=== PATIENT | male | born 1985 | race Caucasian/White ===

== ENCOUNTER 2022-07-18 12:42 | Emergency (ER) | payer OTHER, SELFPAY ==
--- NOTE | ~2022-07-18 | CT_ITS ---
EXAMINATION: CT abdomen pelvis wo con DATE: 07/18/2022 14:34 INDICATION: Left-sided flank pain. Nausea and vomiting TECHNIQUE: Computed tomography (CT) of the abdomen and pelvis was performed without intravenous contr ast. The dose-length product was 285.33 mGy-cm. Automated exposure control and iterative reconstructi on technique were employed. COMPARISON: None. FINDINGS: Lung bases are unremarkable. Heart size is normal. No significant pleural or pericardial ef fusion. No significant vascular abnormality. No lymphadenopathy. The liver, spleen, pancreas, adrenal glands and right kidney are unremarkable. There is a 6 x 5 mm pr oximal left ureteral stone with moderate left hydronephrosis. There is perinephric edema. Gallbladder is present. No lymphadenopathy. Nonobstructive bowel pattern. Colonic diverticulosis without evidenc e for diverticulitis. No acute osseous abnormality. IMPRESSION: 1. 6 mm proximal left ureteral stone with moderate hydroureteronephrosis. Reviewed, dictated and finalized at location B.
--- NOTE | ~2022-07-18 | XR_ITS ---
EXAMINATION: XR abdomen/kub 1V DATE: 07/18/2022 16:18 INDICATION: Left flank pain. Nausea and vomiting. TECHNIQUE: A supine view of the abdomen on 2 radiographs was obtained. COMPARISON: CT abdomen and pelvis 07/18/2022 FINDINGS: There are no dilated loops of bowel. There are 1 mm and 2 mm stones in left kidney. There a re 7 mm and 2 mm stones in proximal left ureter. There are phleboliths in left pelvis. IMPRESSION: 1. Stones in left kidney and proximal left ureter. Reviewed, dictated and finalized at location A.
[2022-07-18 12:57] VITALS: BP 153/102; PULSE 84; RESP 14; TEMP 36.2; O2SAT 99
[2022-07-18 13:59] LABS: Basophils Absolute Auto 0.1 K/mm3 (0.0-0.1); Basophils Percent Auto 0.4 % (0.2-1.2); Hematocrit 46.5 % (42.0-52.0); Hemoglobin 15.9 g/dL (14.0-18.0); Immature Granulocyte Absolute 0.05 K/mm3 (0.00-0.031); Immature Granulocyte Percent A 0.4 % (0-0.5); Lymphocytes Absolute Auto 0.58 K/mm3 (0.9-3.2); Lymphocytes Percent Auto 4.4 % (18.3-44.2); Mean Corpuscular HGB Conc 34.2 g/dl (32-36); Mean Corpuscular Hemoglobin 31.3 pg (26-34); Mean Corpuscular Volume 91.5 fl (80-100); Mean Platelet Volume 9.3 fl (7.4-10.4); Monocytes Absolute Auto 0.3 K/mm3 (0.1-0.6); Monocytes Percent Auto 2.1 % (2.6-8.5); Neutrophils Absolute Auto 12.2 K/mm3 (1.3-6.7); Neutrophils Percent Auto 92.7 % (45.5-73.1); Platelet Count Result 296 k/mm3 (150-375); Red Blood Count 5.08 M/mm3 (4.6-6.20); Red Cell Distribution Width 11.9 % (11.5-14.5); White Blood Count 13.2 K/mm3 (4.5-10.0)
[2022-07-18 14:12] LABS: Alanine Aminotransferase 38 U/L (6-50); Albumin Level 5.1 g/dL (3.5-5.1); Alkaline Phosphatase 65 U/L (38-126); Anion Gap 15 mmol/L (8-16); Appearance Urine Clear (Clear); Aspartate Amino Transferase 54 U/L (17-59); Bilirubin Urine 1+ (Negative); Bilirubin,Total 0.9 mg/dL (0.2-1.3); Blood Urea Nitrogen 11 mg/dL (9-20); Blood Urine 2+ (Negative); Calcium 9.4 mg/dL (8.4-10.2); Carbon Dioxide 26 mmol/L (22-30); Chloride 100 mmol/L (98-107); Color Urine Yellow (Yellow); Estimated CRCL calculation 81 ml/min; Estimated Glomerular Filt Rate > 60; Glucose 120 mg/dL (65-110); Glucose Urine UA Negative (Negative); Ketones Urine 4+ mg/dL (Negative); Leukocyte Esterase Ur Negative LEU/UL (Negative); Nitrate Urine Negative (Negative); Potassium 4.2 mmol/L (3.4-5.0); Protein Urine 2+ mg/dL (Negative); Sodium 141 mmol/L (137-145); Specific Grav Ur >= 1.030 (1.001-1.035); Urobilinogen Urine 0.2 mg/dL (<2.0); pH Urine 6.5 (5.0-9.0)
[2022-07-18] MEDS: SODIUM CHLORIDE 0.9% IV 1,000 ML 999 ML IV CONT (14:39)
[2022-07-18] MEDS: ONDANSETRON INJ 4 MG/2 ML VIAL IV PUSH (14:39)
[2022-07-18] MEDS: MORPHINE SULFATE (*CRX) 4 MG/ML INJ IV PUSH (14:42)
[2022-07-18 15:15] LABS: Mucus Urine Rare /lpf; RBC Urine 51-75 /hpf (0-2); Squamous Epithelial Cell Urine Rare /hpf (Few); WBC Urine 0-3 /hpf
[2022-07-18 15:18] LABS: Add Urine Microscopic? YES
--- NOTE | 2022-07-18 15:23 | ED.ABDPAIN ---
HPI - Abdominal Pain General Chief Complaint: Abdominal Pain Stated Complaint: L. abd pain, L flank pain Time Seen by Provider: 07/18/22 14:11 History of Present Illness HPI narrative: Patient is a 37-year-old male who presents ER with left lower abdominal pain. Reports earlier today began having pain in his left side. Associate with nausea and vomiting. Radiates into his left back. Symptoms have been waxing waning in intensity. No urinary frequency urgency or dysuria. No hematuria. No history of kidney stones. No known sick contacts. Patient is without diarrhea. No alleviating factors. Related Data Allergies Allergy/AdvReac Type Severity Reaction Status Date / Time ibuprofen [From Motrin] Allergy Hives Verified 07/18/22 14:37 Review of Systems Review of Systems: All systems reviewed & are unremarkable except as noted in HPI and below Constitutional: Constitutional: Denies chills, Denies fatigue and Denies fever(s) ENT: Denies nasal congestion and Denies sore throat Cardiovascular: Cardiovascular: Denies chest pain, Denies rapid heart rate and Denies radiating jaw, neck or arm pain Respiratory: Respiratory: Denies cough and Denies dyspnea Gastrointestinal: Gastrointestinal: Reports abdominal pain, Denies diarrhea, Reports nausea and Reports vomiting Genitourinary: Genitourinary: Denies hematuria, Denies dysuria and Denies urinary frequency Integumentary/Breasts: Skin/Breast: Denies rash and Denies skin ulcer Exam Narrative: GENERAL: Uncomfortable-appearing, well-nourished, and in no acute distress. HEAD: Normocephalic, atraumatic. EYES: PERRL and EOMI. ENT: Mucous membranes moist. CHEST: Clear to auscultation. No respiratory distress. HEART: Regular rate and rhythm. Normal peripheral pulses. ABDOMEN: Soft, nontender, nondistended. EXTREMITIES: Normal range of motion. No edema. SKIN: Warm, dry, no rash. NEURO: Alert and oriented x3. PSYCH: Normal mood and affect. Course Course Emergency Course: Discussed with patient and urology. Through shared decision making it was side patient will go home and try to pass the stone at home. He is aware that if his pain is not controlled he may require hospitalization and should return. Urology aware of patient and will have him follow-up next week. Vital Signs Vital signs: Vital Signs Temperature 97.2 F L 07/18/22 12:57 Pulse Rate 84 07/18/22 12:57 Respiratory Rate 14 07/18/22 12:57 Blood Pressure 153/102 H 07/18/22 12:57 Pulse Oximetry 99 07/18/22 12:57 Oxygen Delivery Room Air 07/18/22 12:57 Temperature 97.2 F L 07/18/22 12:57 Pulse Rate 84 07/18/22 12:57 Respiratory Rate 14 07/18/22 12:57 Blood Pressure 153/102 H 07/18/22 12:57 Pulse Oximetry 99 07/18/22 12:57 Oxygen Delivery Room Air 07/18/22 12:57 MDM - Abdominal Pain Lab Data Result diagrams: 07/18/22 13:40 07/18/22 13:40 Labs: Lab Results 07/18/22 07/18/22 07/18/22 Range/Units 13:40 13:40 13:40 WBC 13.2 H (4.5-10.0) K/mm3 RBC 5.08 (4.6-6.20) M/mm3 Hgb 15.9 (14.0-18.0) g/dL Hct 46.5 (42.0-52.0) % MCV 91.5 (80-100) fl MCH 31.3 (26-34) pg MCHC 34.2 (32-36) g/dl RDW 11.9 (11.5-14.5) % Plt Count 296 (150-375) k/mm3 MPV 9.3 (7.4-10.4) fl Immature Gran % (Auto) 0.4 (0-0.5) % Neut % (Auto) 92.7 H (45.5-73.1) % Lymph % (Auto) 4.4 L (18.3-44.2) % [place] % (Auto) 2.1 L (2.6-8.5) % Eos % (Auto) 0.0 (0-4.4) % Baso % (Auto) 0.4 (0.2-1.2) % Lymph # (Auto) 0.58 L (0.9-3.2) K/mm3 [place] # (Auto) 0.3 (0.1-0.6) K/mm3 Eos # (Auto) 0.0 (0-0.3) K/mm3 Baso # (Auto) 0.1 (0.0-0.1) K/mm3 Abs Immat Gran (auto) 0.05 H (0.00-0.031) K/mm3 Absolute Neuts (auto) 12.2 H (1.3-6.7) K/mm3 Absolute Nucleated RBC 0.0 (0.0-0.012) K/mm3 Nucleated RBC % 0.0 (0.0-0.2) % Sodium 141 (137-145) mmol/L Potassium 4.2 (3.4-5.0) mmol/L Ch
== END 2022-07-18 16:41 | disposition home or self-care (01) ==
PROVIDERS: Emergency Medicine; Emergency Provider Emergency Medicine
DX: N20.1 Calculus of ureter (principal)
CPT/HCPCS: 36415; 74018; 74176; 80053; 81001; 85025; 96361; 96374; 96375; 99284; J2270; J2405; J7030

== ENCOUNTER → 2022-08-18 11:19 | Outpatient (CLI) | payer OTHER, SELFPAY ==
--- NOTE | ~2022-08-18 | XR_ITS ---
XR abdomen/kub 1V 08/18/2022 11:30 Indication: Left ureteral stone. Procedure: KUB Comparison: 07/18/2022 Findings: There is a cluster of stones in the expected location of the left UPJ at the L3 level. Eliezer l gas pattern is nonobstructive. There are pelvic phleboliths. No acute osseous abnormality. Impression: 1: Clustered renal stones near the expected location of the left UPJ. Reviewed, dictated and finalized at location A. NESS MGR Impression: 1: Clustered renal stones near the expected location of the left UPJ.
== END ==
PROVIDERS: PCP Urology; Visit Provider Urology
DX: N20.1 Calculus of ureter (principal)
CPT/HCPCS: 74018

== ENCOUNTER 2022-08-25 08:46 | Outpatient (CLI) | payer OTHER, SELFPAY ==
[2022-08-25 09:45] LABS: INR 1.1; Prothrombin Time 13.9 Seconds (11.1-14.7)
[2022-08-25 09:46] LABS: Partial Thromboplastin Time 25.9 SECONDS (22.3-36.8)
== END 2022-08-25 08:47 | disposition home or self-care (01) ==
PROVIDERS: Visit Provider Urology
DX: N20.1 Calculus of ureter (principal)
CPT/HCPCS: 36415; 85610; 85730; 87086

== ENCOUNTER 2022-09-05 00:37 | Day surgery (SDC) | payer OTHER, SELFPAY ==
[2022-08-22 12:27] VITALS: BMI 23.0
--- NOTE | 2022-08-22 12:32 | PC.NURSE ---
Report to the Outpatient Waiting Room, entrance under the green pavilion located off [facility], at time 10:00 on date 09/05/22. Planned Procedure Time: 12:00. Time changes happen often and if your time is changed the preop area will call you the afternoon before. - You and your visitor will be asked to self-screen and do not enter if you have any COVID symptoms. - Only one visitor is requested with a max of two and NO children visitors are allowed at this time. - The patient visitor may be requested to leave or wait in car when not with patient due to distancing restrictions. - A mask is optional within the hospital. Patients may have clear liquids (water, carbonated beverages, clear teas, apple juice) until 3 hours prior to surgery (9:00) with a maximum of 20 ounces. - No food from midnight until time of surgery Take the following medications with a SIP of water the morning of surgery: N/A Medications to discontinue per physician: N/A Date to take last dose: N/A Please no make-up, nail ukrainian, hairspray, perfume, deodorant, or body powder the day of surgery. No jewelry (including any body piercings) or valuables the day of surgery, leave them at home. Please take a shower or bath the night before, or the morning of, surgery with an antibacterial soap. Wear comfortable, loose fitting clothing. - Jewelry must be removed prior to entering the operating room. Rings and piercings that are not removed may be cut off. - The hospital will not accept responsibility for valuables. - Please leave all valuables, including medications, at home the day of surgery. If you are going home after surgery, a licensed racing driver must drive you home. - NO public transportation without another adult if you receive anesthesia. - We recommend that an adult stay with you for 24 hours following discharge. - We also recommend that you do not drive, make important decision, drink alcoholic beverages, or take any drugs that were not prescribed by your health care provider for at least 24 hours after your discharge time. Follow any additional instructions given to you from your surgeon. If you or anyone in your household have experienced Covid symptoms in the past week, please notify your surgeon or the nurse liaison at the phone number below for possible testing. Telephone instructions given to PT - LAILA MCDOWELL and asked if any additional questions and then verbalized understanding. Patient advised to call surgeon office or pre surgery nurse liaison [phone] if any additional questions.
[2022-09-05] VITALS (10 sets, daily range): BP systolic 119–155; BP diastolic 62–112; PULSE 62–86; RESP 12–19; TEMP 36.3–37.3; O2SAT 98–100
--- NOTE | ~2022-09-05 | XR_ITS ---
EXAMINATION: XR abdomen/kub 1V DATE: 09/05/2022 09:03 INDICATION: Kidney stone. TECHNIQUE: A supine view of the abdomen on 2 radiographs was obtained. COMPARISON: Abdomen radiographs 08/18/2022, CT abdomen and pelvis 07/18/2022 FINDINGS: There are no dilated loops of bowel. There are 11 x 6 mm and 2 mm stones in proximal left u reter. There are phleboliths in left pelvis. IMPRESSION: 1. Stones in proximal left ureter. Reviewed, dictated and finalized at location A.
--- NOTE | 2022-09-05 07:16 | WPDHPUPDATE1 ---
History and Physical Update Update Date/Time: 09/05/22 07:16 History and Physical has been reviewed, including an updated exam of the patient. There are NO changes in the patient's condition. Risks, benefits, and alternatives have been discussed and questions answered. Patient agrees to proceed with procedure.
[2022-09-05] MEDS: LACTATED RINGERS 1,000 ML 30 ML IV CONT (09:30)
--- NOTE | 2022-09-05 09:57 | P.PNAN_ITS ---
Anes - Initial Pre Proc Eval Procedure: Operation Date: 09/05/22 11:00 Proposed Procedures p Left Extracorporeal Shock Wave Lithotripsy - Remington Li MD Date/Time: 09/05/22 09:57 Surgeon: Remington Li MD Pre Op Diagnosis: Lt Ureteral Left Renal Patient Data Age: 37 Gender: M Height: 1.8 m Weight: 74.6 kg Last Vital Signs Temp 37.3 C 09/05/22 09:15 Pulse 73 09/05/22 09:15 Resp 16 09/05/22 09:15 BP 120/73 09/05/22 09:15 Pulse Ox 98 09/05/22 09:15 O2 Del Method Room Air 09/05/22 09:15 Allergies Allergy/AdvReac Type Severity Reaction Status Date / Time ibuprofen [From Motrin] Allergy Hives Verified 09/05/22 09:07 Home Medications Medication Instructions Recorded Confirmed Type No Home Medications 08/22/22 09/05/22 History Patient hx anesthesia problems: none Family hx anesthesia problems: none Results Review: All pre-operative results and documents have been reviewed as part of the pre- operative evaluation. [facility] Social History Social History Smoking status: Former smoker Tobacco type: cigarettes Additional smoking assessment comments: OCCASIONALLY IN PAST Alcohol intake: current Drinks per week: 5 Substance use: never Substance use type: does not use Living arrangements: with roommate(s) Spiritual care concerns: No Anes - Eval Final PreProcedure Day of Procedure 09/05/22 09:57 Patient weight: normal Heart: regular rate and rhythm Lungs: clear to auscultation Airway: Mallampati scale class II Neurological: alert and oriented Last oral intake: >/= 8 hours ASA classification: II Emergent: no Anesthetic plan: proceed Anesthesia type and monitoring: general LMA and standard monitoring Results Review: All pre-operative results and documents have been reviewed as part of the pre- operative evaluation. Informed Consent: The patient's anesthetic plan and its attendant risks and benefits were discussed with the patient/family/POA. Questions were solicited and answers provided to the satisfaction of the patient/family/POA.
[2022-09-05] MEDS: ceFAZolin 2 GM/D5W 50 ML 2 GM/50 ML BAG IVPB (10:12)
--- NOTE | 2022-09-05 10:26 | W.PM.PROC2 ---
Procedure Note - Detailed Date of Procedure 09/05/22 Pre-op Diagnosis Lt Ureteral Stone Post-op Diagnosis Same Procedure Performed Left ESWL Surgeon Remington Li MD Anesthesia General Description of Procedure The patient was brought to the operative suite where he was placed in the supine position on the Dornier lithotripsy table. The focal point of the lithotripter was placed at a 6-7mm left proximal ureteral calculus. A total of 3000 shocks were delivered at a power setting of 6. There appeared to be good fragmentation of the stone. The patient tolerated the procedure well and was taken to the recovery room in good condition. Drains No Packing No Pathology None sent Complications No immediate complications Condition Stable
--- NOTE | 2022-09-05 12:05 | SUR.PHASEII ---
Dr. Murguia aware of BP and said just monitor at this time.
[2022-09-05] MEDS: oxyCODONE HCL (*CRX) 5 MG TAB IR PO (12:48)
== END 2022-09-05 13:15 | disposition home or self-care (01) ==
PROVIDERS: Visit Provider Urology
PROC: (CPT 50590; principal; 2022-09-05 11:00)
DX: N20.1 Calculus of ureter (principal); Z87.891 Personal history of nicotine dependence
CPT/HCPCS: 50590; 74018; A9270; J0690; J1100; J2250; J2405; J2704; J3010; J7120

== ENCOUNTER → 2022-09-19 15:05 | Outpatient (CLI) | payer OTHER, SELFPAY ==
--- NOTE | ~2022-09-19 | XR_ITS ---
EXAMINATION: XR abdomen/kub 1V DATE: 09/19/2022 15:34 INDICATION: Calculus of ureter. TECHNIQUE: A supine view of the abdomen on 2 radiographs was obtained. COMPARISON: CT abdomen and pelvis 07/18/2022, abdomen radiographs 09/05/2022 FINDINGS: There are no dilated loops of bowel. There are phleboliths in left pelvis. IMPRESSION: 1. No visible urolithiasis. Reviewed, dictated and finalized at location A. CHMAN IMPRESSION: 1. No visible urolithiasis.
== END ==
PROVIDERS: PCP Urology; Visit Provider Urology
DX: N20.1 Calculus of ureter (principal)
CPT/HCPCS: 74018